=== PATIENT | female | born 1955 | race Hispanic/Latino ===

== ENCOUNTER 2022-01-12 10:52 | Outpatient (CLI) | payer OTHER ==
[2022-01-12 12:38] LABS: ABG Base Excess 1.1 mmol/L (-2.0-3.0); ABG HCO3 26.2 mmol/L (20.0-26.0); ABG Methemoglobin 0.5 % (0.0-1.5); ABG Oxygen Saturation 95.2 % (95.0-99.0); ABG PH 7.402 pH Units (7.350-7.450); ABG PO2 69.4 mm Hg (80.0-90.0)
--- NOTE | 2022-01-12 12:44 | Cat Scan Report ---
CT CHEST WITHOUT CONTRAST INDICATION / CLINICAL INFORMATION: FOLLOW UP LUNG NODULES . TECHNIQUE: Axial CT images were obtained through the chest without contrast. All CT scans at this [facility] ation are performed using CT dose reduction for ALARA by means of automated exposure control. COMPARISON: None available. FINDINGS: HEART: Borderline to mild cardiomegaly. No pericardial abnormality. There are dense calcifications in the mitral valve. CORONARY ARTERY CALCIFICATION: Present -- Severe. THORACIC AORTA: Moderate atherosclerotic calcification without acute abnormality. MEDIASTINUM / LUIS M: No significant abnormality. No pathologic adenopathy. PLEURA: No pleural effusion. No pneumothorax. LUNGS: There is poor inspiration with mild hypoventilatory changes bilaterally. There is eventration of the right anterior hemidiaphragm. The lungs are generally clear otherwise. No suspicious pulmonary nodule or mass is detected. No acute infiltrate or interstitial disease. ADDITIONAL FINDINGS: None. UPPER ABDOMEN: There are multiple tiny gallstones in the gallbladder. No evidence for acute cholecyst itis. There is a 2 cm low-density left adrenal nodule with Hounsfield units of 22. This probably repr esents a small adrenal adenoma although it is incompletely characterized on this exam. If further maeve luation is warranted, CT or MRI adrenal protocol would provide the most information. SKELETAL SYSTEM: Mild thoracic spondylosis. No acute abnormality or bone lesion. IMPRESSION: No suspicious pulmonary nodule or mass is identified. Borderline to mild cardiomegaly. Severe coronary artery calcifications. Cholelithiasis. 2 cm left adrenal nodule as described. I suspect this represents an adrenal adenoma. Signer Name: Constantino Cooper Jr, MD Signed: 01/12/2022 12:39 PM Workstation Name: [id number]
[2022-01-12 12:52] LABS: Hematocrit 41.5 % (30.3-42.9); Hemoglobin 14.2 gm/dl (10.1-14.3); Mean Corpuscular HGB Conc 34 % (30-34); Mean Corpuscular Volume 85 fl (79-97); Platelet Count 218 K/mm3 (140-440); Red Blood Count 4.88 M/mm3 (3.65-5.03)
[2022-01-12 13:05] LABS: Alanine Aminotransferase 75 units/L (7-56); Albumin 3.8 g/dL (3.9-5); BUN/Creatinine Ratio 26; Blood Urea Nitrogen 26 mg/dL (7-17); Calcium 9.3 mg/dL (8.4-10.2); Hemolysis Index 4
--- NOTE | 2022-01-12 14:47 | XRay Report ---
CHEST 2 VIEWS INDICATION / CLINICAL INFORMATION: R91.8. Follow-up lung mass. COMPARISON: None available. FINDINGS: SUPPORT DEVICES: None. HEART / MEDIASTINUM: No significant abnormality. LUNGS / PLEURA: No significant pulmonary or pleural abnormality. No pneumothorax. BONES: No significant osseous abnormality. ADDITIONAL FINDINGS: No significant additional findings. IMPRESSION: 1. No active cardiopulmonary disease. No radiographic evidence of lung mass. Correlation with pending CT chest same date recommended. Signer Name: Rajinder Dominguez II, MD Signed: 01/12/2022 2:37 PM Workstation Name: [id number]
== END 2022-01-12 10:53 | disposition home or self-care (01) ==
LOC: CT 10:52
PROVIDERS: ATTEND Internal Medicine
DX: R91.8 Other nonspecific abnormal finding of lung field (principal); I21.9 Acute myocardial infarction, unspecified; E11.9 Type 2 diabetes mellitus without complications; E78.00 Pure hypercholesterolemia, unspecified; G47.33 Obstructive sleep apnea (adult) (pediatric); I10 Essential (primary) hypertension; J30.9 Allergic rhinitis, unspecified; I51.7 Cardiomegaly; I25.10 Atherosclerotic heart disease of native coronary artery without angina pectoris; E27.9 Disorder of adrenal gland, unspecified; K80.20 Calculus of gallbladder without cholecystitis without obstruction; Z86.16 Personal history of COVID-19
CPT/HCPCS: 36415; 36600; 71046; 71250; 80053; 82550; 82728; 82803; 83615; 84436; 84443; 84484; 85027; 85379; 86140